=== PATIENT | male | born 1970 | race Hispanic/Latino ===

== ENCOUNTER 2024-09-22 14:02 | Emergency (ER) | payer SELFPAY ==
[~2024-09-22] VITALS: Ht 170.2 cm; Wt 88.0 kg
[2024-09-22 14:04] VITALS: PULSE 83; RESP 16; TEMP 98.2
[2024-09-22 15:17] VITALS: BP 154/80; PULSE 83; RESP 18; TEMP 98.2; O2SAT 100
== END 2024-09-22 15:37 | disposition home or self-care (01) ==
LOC: ER 14:14
DX: S80.812A Abrasion, left lower leg, initial encounter (principal); W11.XXXA Fall on and from ladder, initial encounter; Y92.89 Other specified places as the place of occurrence of the external cause
CPT/HCPCS: 99283